=== PATIENT | female | born 1995 | race Caucasian/White ===

== ENCOUNTER → 2017-08-22 10:03 | Emergency (ER) | payer SELFPAY ==
[~2017-08-22 10:03] MED LIST: PPD test dose* 5 TU/0.1 ML TEST (*USE PPD ORDER SET*) ONE
== END | disposition home or self-care (01) ==
LOC: OHCORT 10:03
DX: Z11.1 Encounter for screening for respiratory tuberculosis (principal)

== ENCOUNTER → 2017-10-02 09:42 | Emergency (ER) | payer SELFPAY | END | disposition home or self-care (01) | LOC: OH 09:42 | DX: R76.11 Nonspecific reaction to tuberculin skin test without active tuberculosis (principal) ==